=== PATIENT | female | born 1970 | race Caucasian/White ===

== ENCOUNTER 2017-07-15 17:19 | Emergency (ER) | payer SELFPAY ==
[~2017-07-15] VITALS: Ht 174 cm; Wt 110.0 kg
[2017-07-15 18:08] VITALS: BP 128/80
== END 2017-07-15 19:38 | disposition home or self-care (01) ==
LOC: ED 19:32
DX: S00.86XA Insect bite (nonvenomous) of other part of head, initial encounter (principal); S40.862A Insect bite (nonvenomous) of left upper arm, initial encounter; S40.861A Insect bite (nonvenomous) of right upper arm, initial encounter; L03.113 Cellulitis of right upper limb; W57.XXXA Bitten or stung by nonvenomous insect and other nonvenomous arthropods, initial encounter; Y93.89 Activity, other specified; Y92.89 Other specified places as the place of occurrence of the external cause; Y99.8 Other external cause status
CPT/HCPCS: 99283